=== PATIENT | female | born 1990 | race Two or more races ===

== ENCOUNTER 2016-11-17 21:18 | Emergency (ER) | payer MEDICAID ==
[~2016-11-17] VITALS: Ht 152.4 cm; Wt 53.1 kg
[2016-11-17 21:20] VITALS: BP 122/71
[2016-11-17 21:54] LABS: Urine Bilirubin Negative (Negative); Urine Blood TRACE /uL (Negative); Urine Color Yellow (Yellow); Urine Glucose Normal (Normal); Urine Ketone Negative (Negative); Urine Mucus FEW (None Seen); Urine Nitrite Negative (Negative); Urine RBC 7 /hpf (0 - 4); Urine Squamous Epithelial Cell MOD /hpf (<5)
[2016-11-17] MEDS ORDERED: IBUPROFEN 600 MG TAB PO ONE (23:15)
== END 2016-11-17 23:13 | disposition home or self-care (01) ==
LOC: ER 21:24
DX: N39.0 Urinary tract infection, site not specified (principal); R51 Headache
CPT/HCPCS: 70450; 81001; 81002; 81025

== ENCOUNTER 2016-12-21 12:55 | Emergency (ER) | payer MEDICAID ==
[~2016-12-21] VITALS: Ht 152.4 cm; Wt 52.2 kg
[2016-12-21 14:34] VITALS: BP 130/90
== END 2016-12-21 14:59 | disposition home or self-care (01) ==
LOC: ER 13:05
DX: H10.32 Unspecified acute conjunctivitis, left eye (principal)

== ENCOUNTER 2017-09-09 10:31 | Emergency (ER) | payer MEDICAID ==
[~2017-09-09] VITALS: Ht 154.9 cm; Wt 54.4 kg
[2017-09-09 11:13] VITALS: BP 139/87
== END 2017-09-09 12:24 | disposition home or self-care (01) ==
LOC: ER 10:31
DX: K04.7 Periapical abscess without sinus (principal); H92.02 Otalgia, left ear

== ENCOUNTER 2020-12-06 11:15 | Observation (INO) | payer MEDICAID ==
[2020-12-06] MEDS ORDERED: PREN-96 PO (12:00)
== END 2020-12-06 12:55 | disposition home or self-care (01) ==
LOC: LDRP 11:15
PROVIDERS: ADMIT Obstetrics & Gynecology; ATTEND Obstetrics & Gynecology
DX: O24.419 Gestational diabetes mellitus in pregnancy, unspecified control (principal); O62.9 Abnormality of forces of labor, unspecified; Z3A.33 33 weeks gestation of pregnancy
CPT/HCPCS: 59025; 81002; 82948; 82962; 94760; G0378; G0379

== ENCOUNTER 2020-12-13 11:07 | Observation (INO) | payer MEDICAID ==
[~2020-12-13 11:07] MED LIST: PREN-96 PO
== END 2020-12-13 12:17 | disposition home or self-care (01) ==
LOC: LDRP 11:07
PROVIDERS: ADMIT Obstetrics & Gynecology; ATTEND Obstetrics & Gynecology
DX: O24.419 Gestational diabetes mellitus in pregnancy, unspecified control (principal); Z3A.34 34 weeks gestation of pregnancy
CPT/HCPCS: 59025; 76818; 81002; 82948; 82962; 94760; G0378; G0379

== ENCOUNTER 2020-12-20 10:51 | Observation (INO) | payer MEDICAID | END 2020-12-20 12:15 | disposition home or self-care (01) | LOC: LDRP 10:51 | PROVIDERS: ADMIT Obstetrics & Gynecology; ATTEND Obstetrics & Gynecology | DX: O24.419 Gestational diabetes mellitus in pregnancy, unspecified control (principal); O99.893 Other specified diseases and conditions complicating puerperium; M54.9 Dorsalgia, unspecified; Z3A.35 35 weeks gestation of pregnancy | CPT/HCPCS: 59025; 76818; 81002; 82948; 82962; 94760; G0378 ==

== ENCOUNTER 2020-12-21 18:51 | Observation (INO) | payer MEDICAID | END 2020-12-21 21:02 | disposition home or self-care (01) | LOC: LDRP 18:51 | PROVIDERS: ADMIT Obstetrics & Gynecology Obstetrics; ATTEND Obstetrics & Gynecology Obstetrics | DX: O36.8330 Maternal care for abnormalities of the fetal heart rate or rhythm, third trimester, not applicable or unspecified (principal); O34.63 Maternal care for abnormality of vagina, third trimester; N89.8 Other specified noninflammatory disorders of vagina; O34.219 Maternal care for unspecified type scar from previous cesarean delivery; Z3A.35 35 weeks gestation of pregnancy; Z79.899 Other long term (current) drug therapy | CPT/HCPCS: 59025; 76818; 81002; 82948; 82962; G0378; G0379 ==

== ENCOUNTER 2020-12-23 11:04 | Observation (INO) | payer MEDICAID | END 2020-12-23 15:10 | disposition home or self-care (01) | LOC: LDRP 11:04 | PROVIDERS: ADMIT Obstetrics & Gynecology; ATTEND Obstetrics & Gynecology | DX: O24.419 Gestational diabetes mellitus in pregnancy, unspecified control (principal); O99.891 Other specified diseases and conditions complicating pregnancy; M54.9 Dorsalgia, unspecified; Z3A.35 35 weeks gestation of pregnancy | CPT/HCPCS: 59025; 76818; 81002; 82948; 82962; G0378; G0379 ==

== ENCOUNTER 2020-12-27 11:18 | Observation (INO) | payer MEDICAID | END 2020-12-27 12:55 | disposition home or self-care (01) | LOC: LDRP 11:25 | PROVIDERS: ADMIT Obstetrics & Gynecology; ATTEND Obstetrics & Gynecology | DX: O24.419 Gestational diabetes mellitus in pregnancy, unspecified control (principal); O60.03 Preterm labor without delivery, third trimester; Z3A.36 36 weeks gestation of pregnancy | CPT/HCPCS: 59025; 76818; 81002; 82948; 82962; 94760; G0378 ==

== ENCOUNTER 2021-01-03 07:54 | Observation (INO) | payer MEDICAID | END 2021-01-03 12:40 | disposition home or self-care (01) | LOC: LDRP 11:30 | PROVIDERS: ADMIT Obstetrics & Gynecology; ATTEND Obstetrics & Gynecology | DX: O24.419 Gestational diabetes mellitus in pregnancy, unspecified control (principal); O62.9 Abnormality of forces of labor, unspecified; Z3A.37 37 weeks gestation of pregnancy | CPT/HCPCS: 59025; 76818; 81002; 82948; 82962; G0378; G0379 ==

== ENCOUNTER 2021-01-10 09:15 | Observation (INO) | payer MEDICAID | END 2021-01-10 10:11 | disposition home or self-care (01) | LOC: LDRP 09:15 | PROVIDERS: ADMIT Obstetrics & Gynecology; ATTEND Obstetrics & Gynecology | DX: O24.419 Gestational diabetes mellitus in pregnancy, unspecified control (principal); Z3A.38 38 weeks gestation of pregnancy | CPT/HCPCS: 59025; 76818; 81002; 82948; 82962; 94760; G0378 ==

== ENCOUNTER 2021-01-17 10:05 | Observation (INO) | payer MEDICAID | END 2021-01-17 10:57 | disposition home or self-care (01) | LOC: LDRP 10:05 | PROVIDERS: ADMIT Obstetrics & Gynecology; ATTEND Obstetrics & Gynecology | DX: O24.419 Gestational diabetes mellitus in pregnancy, unspecified control (principal); O62.9 Abnormality of forces of labor, unspecified; Z3A.39 39 weeks gestation of pregnancy | CPT/HCPCS: 59025; 76818; 81002; 82948; 82962; G0378; G0379 ==

== ENCOUNTER 2021-01-22 20:47 | Inpatient (IN) | payer MEDICAID ==
[~2021-01-22] VITALS: Ht 154.9 cm; Wt 67.6 kg
[2021-01-22] MEDS ORDERED: WITCH HAZEL-GLYCERIN PAD TOP PRN (21:15)
[2021-01-22] MEDS ORDERED: LACTATED RINGER'S 1,000 ML IV SCH (21:15)
[2021-01-22] MEDS ORDERED: LIDOCAINE 2%HCL (LOCAL ANESTH.) INJ 20ML MDV IJ PRN (21:15)
[2021-01-22] MEDS ORDERED: PHISODERM TOP SOLN 240ML BTL TOP PRN (21:15)
[2021-01-22] MEDS ORDERED: BUTORPHANOL TARTRATE 2 MG/1 ML VIAL IV PRN ×2 (21:15)
[2021-01-22] MEDS ORDERED: PROMETHAZINE HCL 25 MG/ML 1ML IV PRN (21:15)
[2021-01-22] MEDS ORDERED: DERMOPLAST 60ML BOTTLE TOP PRN (21:15)
[2021-01-22] MEDS ORDERED: miSOPROStol 50 MCG per PRE-CUT 1/2 TAB PO PRN (23:00)
[2021-01-22 23:42] LABS: Basophils # (auto) 0 10 ^3/uL (0-0.2); Basophils % (auto) 0.1 % (0.0-2.0); Eosinophils # (auto) 0.1 10 ^3/uL (0-0.8); Hematocrit 39.3 % (36.0-46.0); Hemoglobin 13.7 g/dL (12.2-16.2); Lymphocytes # (auto) 2.2 10 ^3/uL (0.4-5.4); Lymphocytes % (auto) 34.1 % (10.0-50.0); Mean Corpuscular Hemoglobin 33.1 pg (28.0-32.0); Mean Corpuscular Hgb Conc. 34.8 g/dL (32.0-36.0); Monocytes # (auto) 0.5 10 ^3/uL (0-1.3); Neutrophils # (auto) 3.6 10 ^3/uL (1.6-8.6); Neutrophils % (auto) 55.8 % (37.0-80.0); Nucleated Red Blood Cells % 0.1 %; Red Blood Cells 4.13 10^6/uL (4.0-5.20); Red Cell Distribution Width 13.7 % (11.8-14.3); White Blood Cell 6.4 10^3/uL (4.4-10.8)
[2021-01-22 23:58] LABS: Albumin 2.5 g/dL (3.4-5.0); BUN/Creatinine Ratio 12.2; Calcium 8.2 mg/dL (8.5-10.1); INR 0.94 (0.9-1.15); Partial Thromboplastin Time 30.4 sec (23.6-33.0); Potassium 3.4 mmol/L (3.5-5.1)
[2021-01-23 00:01] LABS: Bilirubin, Total 0.3 mg/dL (0.2-1.0); Total Protein 6.5 g/dL (6.4-8.2)
[2021-01-23 00:26] LABS: Alcohol, Urine < 3.0 mg/dL (0-10); Amphetamine Screen, Urine NEGATIVE (NEGATIVE); Barbiturate Scree,Urine NEGATIVE (NEGATIVE); Benzodiazephine Screen, Urine NEGATIVE (NEGATIVE); Cannabinoid Screen, Urine NEGATIVE (NEGATIVE); Cocaine Screen, Urine NEGATIVE (NEGATIVE); Opiate Scree,Urine NEGATIVE (NEGATIVE); Phencyclidine Screen, Urine NEGATIVE (NEGATIVE)
[2021-01-23 00:46] LABS: Urine Bacteria NONE SEEN /hpf (None Seen); Urine Blood Negative /uL (Negative); Urine Specific Gravity 1.008 (1.001-1.035); Urine WBC 2 /hpf (0 - 5)
[2021-01-23] MEDS ORDERED: LACT. RINGERS/OXYTOCIN 20UNITS 500 ML IV ONE ×2 (07:00)
[2021-01-23] MEDS ORDERED: LACT. RINGERS/OXYTOCIN 20UNITS 1,000 ML IV SCH (09:15)
[2021-01-23] MEDS ORDERED: TERBUTALINE SULFATE 1 MG/ML 1ML VIAL SC PRN (09:15)
[2021-01-23] MEDS ORDERED: D5W/LACTATED RINGERS 1,000 ML IV SCH (10:00)
[2021-01-23] MEDS ORDERED: METHYLERGONOVINE MALEATE 0.2 MG/ML AMP IM ONE (11:28)
[2021-01-23] MEDS: ACETAMINOPHEN 325 MG TAB PO PRN (12:52)
[2021-01-23 14:04] VITALS: BP 128/71
[2021-01-23] MEDS: IBUPROFEN 600 MG TAB PO PRN ×2 (15:26→23:03)
[2021-01-23] MEDS ORDERED: RHO (D) IMMUNE GLOBULIN 300 MCG INJ IM ONE (17:00)
[2021-01-23 19:00] VITALS: BP 130/79
[2021-01-23 23:00] VITALS: BP 117/78
[2021-01-24 03:00] VITALS: BP 123/79
[2021-01-24 07:00] VITALS: BP 120/71
[2021-01-24] MEDS: IBUPROFEN 600 MG TAB PO PRN (07:06)
[2021-01-24 08:06] LABS: RPR Non Reactive (Non Reactive)
[2021-01-24] MEDS: ACETAMINOPHEN 325 MG TAB PO PRN (10:17)
[2021-01-24 11:00] VITALS: BP 104/76
[2021-01-24 14:47] VITALS: BP 124/87
[2021-01-24 15:21] VITALS: BP 124/87
== END 2021-01-24 15:35 | disposition home or self-care (01) | DRG 560 ==
LOC: LDRP 20:47
PROVIDERS: ADMIT Obstetrics & Gynecology; ATTEND Obstetrics & Gynecology
PROC: 3E0234Z Introduction of Serum, Toxoid and Vaccine into Muscle, Percutaneous Approach (ICD-10-PCS; principal; 2021-01-23)
PROC: 10E0XZZ Delivery of Products of Conception, External Approach (ICD-10-PCS; 2021-01-23)
PROC: 0HQ9XZZ Repair Perineum Skin, External Approach (ICD-10-PCS; 2021-01-23)
PROC: 0UQMXZZ Repair Vulva, External Approach (ICD-10-PCS; 2021-01-23)
DX: O24.420 Gestational diabetes mellitus in childbirth, diet controlled (principal); Z37.0 Single live birth; O70.0 First degree perineal laceration during delivery; Z3A.39 39 weeks gestation of pregnancy; Z20.822 Contact with and (suspected) exposure to COVID-19; O71.82 Other specified trauma to perineum and vulva
CPT/HCPCS: 36415; 59025; 59409; 80053; 80307; 81001; 81002; 82948; 82962; 85025; 85610; 85730; 86592; 86850; 86900; 86901; 87426; 90384; 94760; 96360; 96361; 96365; 96372; G0378; J2590

== ENCOUNTER 2022-12-07 18:39 | Emergency (ER) | payer MEDICAID ==
[~2022-12-07] VITALS: Ht 154.9 cm; Wt 59.0 kg
[2022-12-07] MEDS ORDERED: MORPHINE SULFATE 4 MG/ML SYR/VIAL IV ONE ×2 (19:00→19:15)
[2022-12-07] MEDS ORDERED: ONDANSETRON HCL 4 MG/2 ML VIAL IV ONE ×2 (19:00→19:15)
[2022-12-07] MEDS ORDERED: KETOROLAC TROMETH 30 MG/ML 1ML VIAL IV ONE (19:15)
[2022-12-07] MEDS ORDERED: SODIUM CHLORIDE 0.9% 1,000 ML IV ONE (19:15)
[2022-12-07 19:25] VITALS: PULSE 94; RESP 17; O2SAT 97
[2022-12-07 20:07] LABS: Basophils # (auto) 0 10 ^3/uL (0-0.2); Basophils % (auto) 0.4 % (0.0-2.0); Eosinophils # (auto) 0.4 10 ^3/uL (0-0.8); Eosinophils % (auto) 4.4 % (0.0-7.0); Hematocrit 40.9 % (36.0-46.0); Hemoglobin 13.9 g/dL (12.2-16.2); Lymphocytes # (auto) 2.4 10 ^3/uL (0.4-5.4); Lymphocytes % (auto) 25.5 % (10.0-50.0); Mean Corpuscular Hemoglobin 32.1 pg (28.0-32.0); Mean Corpuscular Volume 94.5 fL (80.0-100.0); Monocytes # (auto) 0.7 10 ^3/uL (0-1.3); Monocytes % (auto) 6.9 % (0.0-12.0); Neutrophils % (auto) 62.8 % (37.0-80.0); Nucleated Red Blood Cells % 0.1 %; Red Blood Cells 4.33 10^6/uL (4.0-5.20); Red Cell Distribution Width 14.2 % (11.8-14.3); White Blood Cell 9.6 10^3/uL (4.4-10.8)
[2022-12-07 20:20] LABS: Alanine Aminotransferase 26 U/L (7-40); Albumin 4.3 g/dL (3.2-4.8); Alkaline Phosphatase 108 U/L (46-116); Anion Gap 6 (5-15); Aspartate Aminotransferase 20 U/L (13-40); BUN/Creatinine Ratio 27.7 (10.0-20.0); Bilirubin, Total 0.2 mg/dL (0.2-1.0); Blood Urea Nitrogen 18 mg/dL (9-23); Carbon Dioxide 26 mmol/L (20-30); Chloride 105 mmol/L (98-107); Glucose 132 mg/dL (74-106); Potassium 4.2 mmol/L (3.5-5.1); Sodium 137 mmol/L (136-145); Total Protein 7.2 g/dL (5.7-8.2)
[2022-12-07] MEDS ORDERED: NAPR1TAB24 PO (20:40)
[2022-12-07] MEDS ORDERED: ACET-1304 PO (20:40)
[2022-12-07 20:49] LABS: INR 0.98 (0.9-1.15); Partial Thromboplastin Time 28.9 SEC (24.5-34.5); Prothrombin Time 10.3 sec (9.3-11.8)
[2022-12-07 21:30] VITALS: BP 136/81; PULSE 107; RESP 17; O2SAT 97
[2022-12-07] MEDS ORDERED: HYDROcodone-ACET 5/325MG TAB PO ONE (21:45)
== END 2022-12-07 21:55 | disposition home or self-care (01) ==
LOC: ER 18:39
DX: S82.851A Displaced trimalleolar fracture of right lower leg, initial encounter for closed fracture (principal); Z79.1 Long term (current) use of non-steroidal anti-inflammatories (NSAID); Z79.899 Other long term (current) drug therapy; W09.1XXA Fall from playground swing, initial encounter; Y93.89 Activity, other specified; Y92.89 Other specified places as the place of occurrence of the external cause; Y99.8 Other external cause status
CPT/HCPCS: 29515; 36415; 73610; 80053; 85025; 85610; 85730; 96361; 96374; 96375; 96376; 99285; J1885; J2270; J2405; J7030